=== PATIENT | female | born 1960 | race Caucasian/White ===

== ENCOUNTER 2021-07-15 19:35 | Emergency (ER) | payer MEDICAID, SELFPAY ==
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
[2021-07-15 19:47] VITALS: BP 122/77; PULSE 85; RESP 18; O2SAT 96; BMI 31.3
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
[2021-07-15] MEDS: HYDROcodone-acetaminophen 5-325 mg Tablet 1 TAB PO (21:05)
--- NOTE | 2021-07-15 21:10 | XRR_ITS ---
PROCEDURE INFORMATION: Exam: XR Left Knee Exam date and time: 07/15/2021 9:10 PM Age: 61 years old Clinical indication: Pain; Knee; Left; Additional info: Injury TECHNIQUE: Imaging protocol: XR Left knee. Views: 3 views. COMPARISON: No relevant prior studies available. FINDINGS: Bones/joints: No acute fracture identified. No dislocation. Mild degenerative changes of the knee. Soft tissues: Normal. Other findings: Suspect a small suprapatellar joint effusion. XR/XR knee LT 3V* [id number] IMPRESSION: No acute fracture or dislocation.
--- NOTE | 2021-07-15 21:10 | XRR_ITS ---
PROCEDURE INFORMATION: Exam: XR Right Knee Exam date and time: 07/15/2021 9:10 PM Age: 61 years old Clinical indication: Pain; Knee; Right; Additional info: Injury TECHNIQUE: Imaging protocol: XR Right knee. Views: 3 views. COMPARISON: No relevant prior studies available. FINDINGS: Bones/joints: There are tricompartmental degenerative changes of the knee. No acute fracture is visualized. No destructive osseous lesions identified. Question small knee effusion. Soft tissues: Normal. XR/XR knee RT 3V* [id number] IMPRESSION: No acute fracture or dislocation.
[2021-07-15 22:04] VITALS: RESP 18
== END 2021-07-15 22:05 | disposition home or self-care (01) ==
PROVIDERS: Emergency Provider Emergency Medicine
DX: S13.4XXA Sprain of ligaments of cervical spine, initial encounter (principal); V89.2XXA Person injured in unspecified motor-vehicle accident, traffic, initial encounter
CPT/HCPCS: 70450; 71045; 72125; 72131; 73562; 99283